=== PATIENT | female | born 1960 | race Caucasian/White ===

== ENCOUNTER 2017-06-10 10:10 | Emergency (ER) | payer OTHER ==
[2017-06-10 10:52] VITALS: BP 158/82
--- NOTE | 2017-06-10 10:54 | UC ---
Skin Complaint HPI - HPI Summary HPI Summary: 57 y/o female presents to the urgent care c/o tick bite on her mid back she removed at 0300am this morning. She She thinks she got it on Friday,since [place]. She brought in the tick, but some parts of it still in her. She denies fever, body aches, chest pain, FERRARI, N/V/D, pain. She also denies Hx of Tick bites in the past. - History of Current Complaint Chief Complaint: UCSkin Time Seen by Provider: 06/10/17 10:42 Stated Complaint: TICK Hx Obtained From: Patient ?: No Onset/Duration: Sudden Onset, Lasting Days, Still Present Skin Exposure Onset/Duration: Days Ago - maybe 2 days ago Timing: Constant Onset Severity: Mild Current Severity: Mild Pain Intensity: 0 Pain Scale Used: 0-10 Numeric Location: Discrete - left side of mid back with tick bite Character: Redness Aggravating Factor(s): Touch Alleviating Factor(s): Nothing Associated Signs & Symptoms: Positive: Negative Related History: Possible Reaction to: Insect - Allergy/Home Medications Allergies/Adverse Reactions: Allergies Allergy/AdvReac Type Severity Reaction Status Date / Time No Known Allergies Allergy Verified 06/10/17 10:30 Home Medications: Home Medications Lisdexamfetamine (NF) [Vyvanse (NF)] 70 mg DAILY 06/10/17 [History Confirmed ] Review of Systems Constitutional: Negative Skin: Other - tick bite on the latral side of mid back Eyes: Negative ENT: Negative Respiratory: Negative Cardiovascular: Negative Gastrointestinal: Negative Genitourinary: Negative Motor: Negative Neurovascular: Negative Musculoskeletal: Negative Neurological: Negative Psychological: Negative Is Patient Immunocompromised?: No All Other Systems Reviewed And Are Negative: Yes PMH/Surg Hx/FS Hx/Imm Hx Previously Healthy: Yes Other Psychological History: ADHD - Surgical History Surgical History: Yes Surgery Procedure, Year, and Place: dental - Family History Known Family History: Positive: Hypertension - Social History Occupation: Employed Full-time Lives: With Family Alcohol Use: Occasionally Substance Use Type: None Smoking Status (MU): Former Smoker - Immunization History Most Recent Influenza Vaccination: unsure Physical Exam Triage Information Reviewed: Yes Vital Signs: Initial Vital Signs Temp 97.5 F 06/10/17 10:30 Pulse 63 06/10/17 10:30 Resp 16 06/10/17 10:30 BP 158/82 06/10/17 10:30 Pulse Ox 100 06/10/17 10:30 - Additional Comments Vital Signs Reviewed: Yes General: well developed, well nourished thin female sitting comfortably w/o any apparent distress. Eyes: Positive: Conjunctiva Clear - PERRLA, EOMI ENT: Positive: Normal ENT inspection, Hearing grossly normal, Pharynx normal, TMs normal Neck: Positive: Supple, Nontender, No Lymphadenopathy Respiratory: Positive: Chest nontender, Lungs clear, Normal breath sounds Cardiovascular: Positive: RRR, No Murmur, Pulses Normal Abdomen Description: Positive: Nontender, No Organomegaly, Soft. Negative: CVA Tenderness (R), CVA Tenderness (L) Bowel Sounds: Positive: Present Musculoskeletal: Positive: Strength Intact, ROM Intact, No Edema Neurological Exam: Normal Psychological Exam: Normal Skin: Positive: rashes - Proximal medial aspect of Left upper arm with tick bite with surrounding erythema, non tender to palpation. part of tick still in there. removed with a 30G needle w/o any problem. Bacitracin applied over rash , no swelling or drainage observed, non tender to palpation. Course/Dx - Course Course Of Treatment: 57 y/o female presents to the urgent care c/o tick bite on her mid back she removed at 0300am this morning. She She thinks she got it on Friday,since she was [place]. She brought in the tick, but some parts of it still in her. She denies fever, body aches, chest pain, FERRARI, N/V/D, pain. She also denies Hx of Tick bites in the past.Hx obtained. Part of tick was removed from left lasteral aspect of the mid back with a needle. After tick removal and the skin cleansing ans bacitracin applied. Antibiotic prophylaxis with Doxycycline given to the patient to prevent lyme Disease.. Pt tolerated well medication. Pt advised to observe the area for the development or Erythema Migrans for upto 30 days following exposure. Advised if he develops fever or erythema Migrans to return to the clinic or PCP for further treatment . Pt's BP is elevated Today, advised to decrease salt in her diet and monitor BP at home and if it continues to be elevated to f/u with her PCP. Pt given D/C instructions and edecuated on Lyme disease. Pt understood and agreed with plan of care. - Differential Diagnoses - Skin Complaint Differential Diagnoses: Cellulitis, Local Allergic Reaction, Scabies, Tick Born Illness, Tinea, Urticaria, Other - bed bugs, insect bite - Diagnoses Provider Diagnoses: 1- Tick bite on left lateral side of mid back. 2-Elevated BP w/o Hx of HTN Discharge - Discharge Plan Condition: Stable Disposition: HOME Prescriptions: Bacitracin OINTMENT* 1 applic TOPICAL TID #1 tube Patient Education Materials: Tick Bite (ED), Low Sodium Diet (ED) Referrals: [facility] [Outside] - 2 Weeks Jacqueline TAPIA,Ben Rodriguez [Medical Doctor] - If Needed No Primary Care Phys,NOPCP [Primary Care Provider] - Additional Instructions: 1- Please observe the area for the development or Erythema Migrans for upto 30 days following exposure. Components of the tick saliva can cause transient erythema that should not be confused with Erythema Migrans. However if you develop fever, headache, joint pains, and the specific bull's eye rash for Lyme disease, please f/u with your PCP for a Lyme Serology. 2-Antibiotic prophylaxis with Doxycycline was given to you today to prevent lyme Disease. Apply Bacitracin topical as directed in the tick bite area 3- Your BP is elevated today please decrease salt in your diet, monitor your BP at home. If it continues to be elevated please f/u with your PCP for further management.
[2017-06-10] MEDS ORDERED: DOXYcycline CAP(*) 100 MG PO ONE (11:01)
== END 2017-06-10 11:21 | disposition home or self-care (01) ==
LOC: UCCORT 10:10
DX: S20.462A Insect bite (nonvenomous) of left back wall of thorax, initial encounter (principal); W57.XXXA Bitten or stung by nonvenomous insect and other nonvenomous arthropods, initial encounter; Y93.9 Activity, unspecified; Y92.9 Unspecified place or not applicable; Y99.9 Unspecified external cause status; R03.0 Elevated blood-pressure reading, without diagnosis of hypertension
CPT/HCPCS: 99212; A9270-GY; G0463

== ENCOUNTER 2017-11-27 10:48 | Emergency (ER) | payer OTHER ==
--- NOTE | 2017-11-27 11:52 | UC ---
Skin Complaint HPI - HPI Summary HPI Summary: Pt presents with burning and achey rash to left upper shoulder first noticed last night. Has not had the zoster vaccine and has never had shingles before. Has not applied anything OTC. Pain is mild. Denies fever, chills, recent illness. - History of Current Complaint Time Seen by Provider: 11/27/17 11:52 Stated Complaint: SKIN COMPLAINT Hx Obtained From: Patient Onset/Duration: Sudden Onset Skin Exposure Onset/Duration: Hours Ago Timing: Constant Onset Severity: Mild Current Severity: Mild Pain Intensity: 2 Pain Scale Used: 0-10 Numeric - Allergy/Home Medications Allergies/Adverse Reactions: Allergies Allergy/AdvReac Type Severity Reaction Status Date / Time No Known Allergies Allergy Verified 11/27/17 12:04 Review of Systems Constitutional: Negative Skin: Rash Respiratory: Negative Cardiovascular: Negative Gastrointestinal: Negative Musculoskeletal: Negative Neurological: Negative Psychological: Negative All Other Systems Reviewed And Are Negative: Yes PMH/Surg Hx/FS Hx/Imm Hx Previously Healthy: Yes - Surgical History Surgical History: Yes Surgery Procedure, Year, and Place: teeth pulled - Family History Known Family History: Positive: None, Hypertension, Other - sister has possible genital herpes - Social History Occupation: Employed Full-time Lives: With Family Alcohol Use: Occasionally Substance Use Type: None Smoking Status (MU): Former Smoker - Immunization History Most Recent Influenza Vaccination: unsure Physical Exam - Summary Physical Exam Summary: GENERAL: NAD. WDWN. No pain distress. SKIN: Cluster of 4-5mm in diameter erythematous papules on left clavicle that are mildly TTP. No bleeding, drainage, or streaking. Do not cross midline HEENT: Head: AT/NC Eyes: EOM intact. Conjunctiva clear without inflammation or discharge. Ears: Hearing grossly normal. TMs intact, no bulging, erythema, or edema. Throat: Posterior oropharynx without exudates, erythema, or tonsillar enlargement. Uvula midline. NECK: Supple. Nontender. No lymphadenopathy. CHEST: CTAB. No r/r/w. No accessory muscle use. Breathing comfortably and in no distress. CV: RRR. Without m/r/g. Pulses intact. Brisk cap refill. NEURO: Alert. CN II-XII grossly intact. PSYCH: Age appropriate behavior. Triage Information Reviewed: Yes Course/Dx - Course Course Of Treatment: Shingles left shoulder - valacyclovir - Diagnoses Provider Diagnoses: Shingles left shoulder Discharge - Sign-Out/Discharge Documenting (check all that apply): Discharge - Discharge Plan Condition: Stable Disposition: HOME Prescriptions: ValACYclovir (*) [Valtrex 1 GM(*)] 1 gm PO TID #21 tab Patient Education Materials: Johnnyes (ED) Referrals: No Primary Care Phys,NOPCP [Medical Doctor] - Additional Instructions: If you develop a fever, shortness of breath, chest pain, new or worsening symptoms - please call your PCP or go to the ED. Your blood pressure was high at todays visit. Please see your primary provider within 4 weeks for recheck and re-evaluation. - Billing Disposition and Condition Condition: STABLE Disposition: HOME
[2017-11-27 12:03] VITALS: BP 175/96
== END 2017-11-27 12:34 | disposition home or self-care (01) ==
LOC: UCCORT 10:48
DX: B02.9 Zoster without complications (principal); Z87.891 Personal history of nicotine dependence
CPT/HCPCS: 99212; G0463